=== PATIENT | male | born 1980 | race Two or more races ===

== ENCOUNTER 2019-04-04 09:36 | Emergency (ER) | payer OTHER ==
[~2019-04-04] VITALS: Ht 165.1 cm; Wt 65.3 kg
[2019-04-04 09:43] VITALS: Ht 165.1 cm; Wt 65.3 kg
[2019-04-04 10:44] VITALS: BP 122/76
== END 2019-04-04 10:44 | disposition home or self-care (01) ==
LOC: ED 09:36
DX: S61.011A Laceration without foreign body of right thumb without damage to nail, initial encounter (principal); W26.9XXA Contact with unspecified sharp object(s), initial encounter; Y93.89 Activity, other specified; Y92.89 Other specified places as the place of occurrence of the external cause; Y99.8 Other external cause status
CPT/HCPCS: 90715

== ENCOUNTER 2019-04-28 03:08 | Emergency (ER) | payer OTHER ==
[~2019-04-28] VITALS: Ht 165.1 cm; Wt 65.5 kg
[2019-04-28 06:23] LABS: PLATELET COUNT 296 x10^3mcL (130-400); RED CELL DISTRIBUTION WIDTH 13.4 % (11.5-14.5)
[2019-04-28 06:24] LABS: BASOPHIL % 0 % (0-2)
[2019-04-28 06:37] LABS: CARBON DIOXIDE 26.3 mmol/L (21-32); CHLORIDE SERUM 103 mmol/L (98-107); GFR1 > 60 mL/min; GLUCOSE SERUM 130 mg/dL (74-106); POTASSIUM SERUM 3.6 mmol/L (3.5-5.1); SODIUM SERUM 142 mmol/L (136-145)
[2019-04-28 06:41] LABS: ALBUMIN 4.3 g/dL (3.4-5.0); ALKALINE PHOSPHATASE 109 U/L (46-116); ALT/SGPT 35 U/L (16-63); AST/SGOT 8 U/L (15-37); BILIRUBIN TOTAL 0.51 mg/dL (0.20-1.00); LIPASE 97 IU/L (73-393)
[2019-04-28 06:53] LABS: TOTAL PROTEIN, SERUM 8.7 g/dL (6.4-8.2)
[2019-04-28 07:02] LABS: UA SPECIFIC GRAVITY >=1.030 (1.005-1.035); microscopic required? YES; urine erythrocyte TRACE (NEGATIVE)
[2019-04-28 08:15] VITALS: BP 121/76
== END 2019-04-28 08:15 | disposition home or self-care (01) ==
LOC: ED 03:08
PROVIDERS: Emergency Medicine
DX: R10.13 Epigastric pain (principal); R11.2 Nausea with vomiting, unspecified
CPT/HCPCS: J1885; J2270; J2405